=== PATIENT | female | born 2000 | race Caucasian/White ===

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

== ENCOUNTER 2018-07-30 23:55 | Emergency (ER) | payer SELFPAY ==
--- NOTE | 2018-07-31 00:07 | ED.PDOC ---
History of Present Illness - General Stated Complaint: FALL MID BACK PAIN Time Seen by Provider: 07/31/18 00:04 Source: patient, RN notes reviewed, Vital Signs reviewed Additional Information: 17 YEAR OLD FELL BACK AND HER BACK STRUCK THE BATH TUB SHE EXPERIENCED SEVERE PAIN WAS HANNAH TO GET UP AND WALK AFTER THE FALL SHE POINTS TO THE THROCO LUMBAR JUNCTION THE SITE OF PAIN SHE HAS NO OTHER INJURY SHE HAS NO WEAKNESS NUMBNESS OF THE LOWER EXTREMITIES - History of Present Illness Timing/Duration: 1/2 hour Severity: moderate Improving Factors: immobilization Worsening Factors: movement Associated Symptoms: denies symptoms Allergies/Adverse Reactions: Allergies NO KNOWN ALLERGY Allergy (Verified 05/04/17 18:24) Home Medications: Ambulatory Orders Acetamin W/Cod #3 Tab [Tylenol w/CODEINE #3] 1 ea PO Q6HR PRN #40 tab 07/31/18 Cyclobenzaprine HCl [Flexeril] 10 mg PO Q8HRS #30 tab 07/31/18 Review of Systems - Review of Systems Constitutional: States: no symptoms reported EENTM: States: no symptoms reported Respiratory: States: no symptoms reported Cardiology: States: no symptoms reported Gastrointestinal/Abdominal: States: no symptoms reported Genitourinary: States: no symptoms reported Musculoskeletal: States: see HPI Skin: States: no symptoms reported Neurological: States: no symptoms reported Endocrine: States: no symptoms reported Hematologic/Lymphatic: States: no symptoms reported Past Medical History (General) - Patient Medical History Hx Seizures: No Hx Asthma: No Hx of COPD: No Hx Cardiac Disorders: No Hx Congestive Heart Failure: No Hx Pacemaker: No Hx Hypertension: No Hx Diabetes: No - Social History Hx Alcohol Use: No Hx Substance Use: No Hx Depression: No Family Medical History - Family History Maternal Grandparents Hx Family;Other: grandmother committed suicide Physical Exam - Physical Exam General Appearance: Alert, Anxious Eye Exam: bilateral normal Ears, Nose, Throat: hearing grossly normal, normal ENT inspection, normal pharynx Neck: non-tender, full range of motion, supple Respiratory: chest non-tender, lungs clear, normal breath sounds, no respiratory distress, no accessory muscle use Cardiovascular/Chest: normal peripheral pulses, regular rate, rhythm, no edema, no gallop, no JVD Peripheral Pulses: radial,right: 2+, radial,left: 2+, femoral,right: 2+, femoral ,left: 2+, popliteal,right: 2+, popliteal,left: 2+, dorsalis pedis,right: 2+, dorsalis pedis,left: 2+, posterior tibialis,right: 2+, posterior tibialis,left: 2+ Gastrointestinal/Abdominal: normal bowel sounds, non tender, soft, no organomegaly, no pulsatile mass Back Exam: other - ON THE LOWER THORASIC RIGHT PARAVERTEBRAL AREA THERE IS BRUISE HORIZONTAL PAPRELLEL LINES Extremity: normal range of motion, non-tender Neurologic: access assoc II-XII nml as tested, no motor/sensory deficits, alert, normal mood/affect, oriented x 3 Progress - Progress Progress: 07/31/18 00:50 CT LUMBAR SPINE NEG FOR FX DISLOCATION PT WAS ABLE TO GET OUT OF BED WITHOUT ANY ASSISTANCE 07/31/18 00:51 WILL D/C HOME - Results/Orders Results/Orders: CT LUMBAR SPINE REVIEWED NO FRACTURE NOTED SHE WAS AMBULATED IN THE BURCH WAY SHE DID WITHOUT MUCH DISTRESS WILL DISCHARGE Departure - Departure Clinical Impression: Contusion Time of Disposition: 00:46 Disposition: Discharge to Home or Self Care Condition: Good Instructions: DI for Back Strain or Sprain Diet: resume usual diet Activity: increase activity as tolerated Referrals: RICKIE LITTLE [Primary Care Provider] - 1-2 Weeks Home Medications: Ambulatory Orders Acetamin W/Cod #3 Tab [Tylenol w/CODEINE #3] 1 ea PO Q6HR PRN #40 tab 07/31/18 Cyclobenzaprine HCl [Flexeril] 10 mg PO Q8HRS #30 tab 07/31/18
--- NOTE | 2018-07-31 00:31 | CT ---
CLINICAL HISTORY: FALL COMPARISON: None. TECHNIQUE: CT LUMBAR SPINE WITHOUT IV CONTRAST on 07/31/2018 12:09 AM [employer] This exam was performed according to our departmental dose-optimization program, which includes automated exposure control, adjustment of the mA and/or kV according to patient size and/or use of iterative reconstruction technique. FINDINGS: There is no acute fracture. Alignment is anatomic. Disc spaces are maintained. Vertebral body heights are preserved. Soft tissues are unremarkable. IMPRESSION: No acute fracture or subluxation. Electronically signed by: Iain Kaur MD 07/31/2018 12:30 AM [facility]
[2018-07-31] MEDS ORDERED: HYDROcodone 10MG/APAP 325MG 1 EA TAB PO ONE (00:49)
[2018-07-31] MEDS ORDERED: HYDROcodone 10MG/APAP 325MG 1 EA TAB ONE (00:50)
[2018-07-31 01:16] VITALS: BP 115/67; TEMP 97.8; O2SAT 99
== END 2018-07-31 01:16 | disposition home or self-care (01) ==
LOC: ER 23:55
DX: S20.20XA Contusion of thorax, unspecified, initial encounter (principal); W01.198A Fall on same level from slipping, tripping and stumbling with subsequent striking against other object, initial encounter; Y92.89 Other specified places as the place of occurrence of the external cause

== ENCOUNTER 2018-09-28 14:52 | Emergency (ER) | payer SELFPAY ==
--- NOTE | 2018-09-28 15:54 | ED.PDOC ---
History of Present Illness - General Chief Complaint: Behavioral / Psych Stated Complaint: auditory hallucinations Time Seen by Provider: 09/28/18 15:40 Source: patient Exam Limitations: clinical condition - History of Present Illness Initial Comments: patient comes in for psychiatric help. Patient states she's been off of her psychiatric medications for approximately a year. Patient has been diagnosed in the past with bipolar disorder and drug induced schizophrenia. Patient states in the past however she never had hallucinations and for the past month she's been hearing and seeing things. Patient states she doesn't hear the voices on one side versus the other and she can't quantify what they're saying. Patient also sees forms at times that she knows aren't there but also refuses to describe them further. She will not answer when asked if she will hurt herself she just states that in the past she's tried before and she just can't take it anymore and wants it to end. We ask her to try to explain that further she refuses puts her head down and curls her arms around herself.b Her mom had called and asked her to be seen she was concerned that she was a danger to herself. Patient states prior to this she was in her normal physical health without fever, chills, cough or cold symptoms. She has no other past medical history and states she has not been sexually active for some time. Patient denies any pregnancies in the past or currently but is not on control. She smokes marijuana and last use was within the last month. She denies any other drug use for the past year. Timing/Duration: getting worse, changing over time Severity: severe Associated Symptoms: other Allergies/Adverse Reactions: Allergies NO KNOWN ALLERGY Allergy (Verified 05/04/17 18:24) Home Medications: Ambulatory Orders Acetamin W/Cod #3 Tab [Tylenol w/CODEINE #3] 1 ea PO Q6HR PRN #40 tab 07/31/18 Cyclobenzaprine HCl [Flexeril] 10 mg PO Q8HRS #30 tab 07/31/18 Review of Systems - Review of Systems Constitutional: States: no symptoms reported. Denies: chills, diaphoresis, fever, malaise EENTM: States: no symptoms reported. Denies: eye pain, ear discharge, nose congestion Respiratory: States: no symptoms reported. Denies: cough, short of breath, wheezing Cardiology: States: no symptoms reported. Denies: chest pain, palpitations Gastrointestinal/Abdominal: States: no symptoms reported. Denies: abdominal pain, diarrhea, nausea, vomiting Genitourinary: States: no symptoms reported. Denies: dysuria, frequency, hematuria Musculoskeletal: States: no symptoms reported. Denies: back pain Skin: States: no symptoms reported Neurological: States: see HPI Past Medical History (General) - Patient Medical History Hx Seizures: No Hx Asthma: No Hx of COPD: No Hx Cardiac Disorders: No Hx Congestive Heart Failure: No Hx Pacemaker: No Hx Hypertension: No Hx Diabetes: No - Vaccination History Hx Influenza Vaccination: Yes - Social History Hx Alcohol Use: No Hx Substance Use: No Hx Depression: No - Female History Patient : No Family Medical History - Family History Maternal Grandparents Hx Family;Other: grandmother committed suicide, sister committed suicide Physical Exam - Physical Exam General Appearance: Anxious, No apparent distress Eyes, Ears, Nose, Throat Exam: PERRL/EOMI, normal ENT inspection, TMs normal, pharynx normal Neck: non-tender, full range of motion, supple, normal inspection Respiratory: chest non-tender, normal breath sounds, no respiratory distress Cardiovascular/Chest: normal peripheral pulses, regular rate, rhythm, no edema, no gallop, no JVD, no murmur Gastrointestinal/Abdominal: normal bowel sounds, non tender, soft Extremities Exam: non-tender, normal range of motion Neurological: alert, oriented x 3 Behavior/Eye Contact/Speech: avoids eye contact, decreased rate of speech Skin Exam: normal color Progress - Progress Progress: 09/28/18 18:48 patient evaluated by [facility] and crisis plan was made and contact numbers were given. This time she does not have an actual plan or desire to commit suicide and he feel like she is safe to discharge. Patient was asked if she could remember her normal dose of lithium but she cannot remember what she has been treated within the past and so at this time we'll discharge her home for outpatient contact with [facility] as planned. Of note CAT scan and chest x-ray were refused by the patient and were initially only ordered for medical clearance to try to get her an inpatient facility. I do believe she is medically stable even without those refused exams - Results/Orders Results/Orders: 09/28/18 15:42 Head [CT] Stat Chest,1 View [RAD] Stat 09/28/18 16:08 URINALYSIS Stat Laboratory Results WBC 7.1 K/mm3 (4.8-10.8) 09/28/18 16:22 RBC 5.06 M/mm3 (4.20-5.40) 09/28/18 16:22 Hgb 14.2 gm/dL (12.0-16.0) 09/28/18 16:22 Hct 43.1 % (36.0-47.0) 09/28/18 16:22 MCV 85.2 fl (81.0-99.0) 09/28/18 16:22 MCH 28.1 pg (27.0-31.0) 09/28/18 16:22 MCHC 33.0 g/dL (33.0-37.0) 09/28/18 16:22 RDW 13.5 % (11.5-14.5) 09/28/18 16:22 Plt Count 287 K/mm3 (130-400) 09/28/18 16:22 MPV 8.6 fl (7.40-10.4) 09/28/18 16:22 Absolute Neuts (auto) 5.00 K/uL (1.8-6.8) 09/28/18 16:22 Absolute Lymphs (auto) 1.40 K/uL (1.0-3.4) 09/28/18 16:22 Absolute Monos (auto) 0.50 K/uL (0.2-0.8) 09/28/18 16:22 Absolute Eos (auto) 0.20 K/uL (0.0-0.4) 09/28/18 16:22 Absolute Basos (auto) 0.10 K/uL (0.0-0.1) 09/28/18 16:22 Neutrophils % 70.7 % (42.0-78.0) 09/28/18 16:22 Lymphocytes % 19.3 % (20.0-50.0) L 09/28/18 16:22 Monocytes % 6.6 % (2.0-9.0) 09/28/18 16:22 Eosinophils % 2.7 % (1.0-5.0) 09/28/18 16:22 Basophils % 0.7 % (0.0-2.0) 09/28/18 16:22 Sodium 139 mmol/L (135-145) 09/28/18 16:22 Potassium 3.9 mmol/L (3.6-5.0) 09/28/18 16:22 Chloride 105 mmol/L (101-111) 09/28/18 16:22 Carbon Dioxide 28 mmol/L (21-31) 09/28/18 16:22 Anion Gap 9.9 (12-18) L 09/28/18 16:22 BUN 10 mg/dL (7-18) 09/28/18 16:22 Creatinine 0.49 mg/dL (0.6-1.3) L 09/28/18 16:22 BUN/Creatinine Ratio 20.4 (10-20) H 09/28/18 16:22 Random Glucose 92 mg/dL (70-105) 09/28/18 16:22 Serum Osmolality 276.2 mOsm/L (275-295) 09/28/18 16:22 Calcium 8.9 mg/dL (8.4-10.2) 09/28/18 16:22 Total Bilirubin 0.3 mg/dL (0.2-1.0) 09/28/18 16:22 AST 16 IU/L (10-42) 09/28/18 16:22 ALT 15 IU/L (10-60) 09/28/18 16:22 Alkaline Phosphatase 83 IU/L (75-270) 09/28/18 16:22 Serum Total Protein 7.5 gm/dL (6.4-8.2) 09/28/18 16:22 Albumin 3.6 g/dl (3.2-5.5) 09/28/18 16:22 Globulin 3.9 gm/dL (2.3-3.5) H 09/28/18 16:22 Albumin/Globulin Ratio 0.9 (1.1-1.9) L 09/28/18 16:22 Serum HCG, Qual Cancelled 09/28/18 15:42 Urine HCG, Qual Negative 09/28/18 15:42 Urine Opiates Screen Negative ng/mL (1999) 09/28/18 16:22 Acetaminophen < 10.0 ug/mL (10.0-30.0) L 09/28/18 16:22 Urine Barbiturates Negative ng/mL () 09/28/18 16:22 Ur Phencyclidine Scrn Negative ng/mL (25) 09/28/18 16:22 U Amphetamin/Meth Scrn Negative ng/mL (1000) 09/28/18 16:22 U Benzodiazepines Scrn Negative ng/mL (200) 09/28/18 16:22 U Cocaine Metab Screen Negative ng/mL (300) 09/28/18 16:22 U Cannabinoids Screen Positive ng/mL (50) H 09/28/18 16:22 Ethyl Alcohol < 5.40 mg/dL (0-79) 09/28/18 16:22 Departure - Departure Clinical Impression: Psychological disorder, Psychiatric symptoms Disposition: Discharge to Home or Self Care Condition: Fair Departure Forms: ED Discharge - Pt. Copy, Patient Portal Self Enrollment Instructions: DI for Psychosis Referrals: RICKIE LITTLE [Primary Care Provider] - 1-2 Weeks Home Medications: Ambulatory Orders Acetamin W/Cod #3 Tab [Tylenol w/CODEINE #3] 1 ea PO Q6HR PRN #40 tab 07/31/18 Cyclobenzaprine HCl [Flexeril] 10 mg PO Q8HRS #30 tab 07/31/18 Additional Instructions: follow-up with [facility] on Sunday as planned. Return to the emergency room for suicide ideations, worsening of symptoms.
[2018-09-28 19:03] VITALS: BP 153/105; TEMP 98.7; O2SAT 99
== END 2018-09-28 19:02 | disposition home or self-care (01) ==
LOC: ER 14:52
DX: R44.0 Auditory hallucinations (principal); R44.1 Visual hallucinations; F31.9 Bipolar disorder, unspecified; F12.90 Cannabis use, unspecified, uncomplicated